=== PATIENT | male | born 1935 | race Caucasian/White ===

== ENCOUNTER 2018-11-12 12:24 | Emergency (ER) | payer MEDICARE ==
[~2018-11-12] VITALS: Ht 175.2 cm; Wt 90.7 kg
--- NOTE | ~2018-11-12 | EKG ---
[place], [place] ELECTROCARDIOGRAM REPORT NAME: ROHIT CANAS UNIT #: [id number] ROOM: DOCTOR: EPIPHANY DRAFT REPORT BIRTHDATE: [birth year] [facility] Test Date: 2018-11-12 Test Time: 13:22:05 Pat Name: ROHIT CANAS Department: Room: Gender: Processes Chemical Design Engineer: : [id number] Requested By: JANEEN LOPEZ Order Number: [id number] Reading MD: Nile Gordon MD Measurements Intervals [place] Rate: 103 P: [place]: QRS: -50 QRSD: 140 T: -47 QT: 376 QTc: 492 Interpretive Statements Atrial fibrillation Right bundle branch block Inferior infarct, old Electronically Signed On 11-13-2018 14:46:44 PDT by Nile Gordon MD CM:EKGRPT:ELECTROCARDIOGRAM REPORT [id number] JANEEN CANALES DRAFT REPORT JANEEN LOPEZ DO
[~2018-11-12 12:24] MED LIST: KEFLEX500 MG PO
[2018-11-12 13:26] LABS: BASO % 0.2 % (0.0-1.0); HEMATOCRIT 43.8 % (42.0-52.0); HEMOGLOBIN 13.8 g/dl (14.0-18.0); LYMPH # 0.5 10*3/uL (1.3-4.4); MEAN CELL VOLUME 87.6 fl (80.0-94.0); MEAN CORPUSCULAR HGB 27.6 pg (27.0-31.0); MEAN CORPUSCULAR HGB CONC 31.5 g/dl (33.0-37.0); MEAN PLATELET VOLUME 11.4 fl (9.6-12.3); MONO # 0.3 10*3/uL (0.1-1.0); MONO % 7.5 % (3.0-9.0); NEUT # 3.7 10*3/uL (2.3-7.9); NEUT % 82.1 % (47.0-73.0); PLATELET COUNT AUTOMATED 94 10*3/uL (130-400); RED CELL DISTRI WIDTH 14.6 % (0-14.5); WHITE BLOOD COUNT 4.5 10*3/uL (4.8-10.8)
[2018-11-12 13:38] LABS: ACT PARTIAL THROMBO TIME 36.1 SECONDS (20.0-32.1); INTERNATIONAL NORM RATIO 1.2 (2.0-3.5)
[2018-11-12 13:41] LABS: ALBUMIN 3.4 gm/dl (3.1-4.5); ALKALINE PHOSPHATASE 76 U/L (45-117); BUN 21 mg/dl (7-24); CHLORIDE 109 mmol/L (98-107); CREATININE 1.82 mg/dL (0.70-1.30); LIPASE 56 U/L (73-393); POTASSIUM 3.6 mmol/L (3.5-5.1); SGOT/AST 18 IU/L (3-35); SGPT/ALT 17 U/L (12-78); SODIUM 140 mmol/L (136-145); TOTAL PROTEIN 6.7 gm/dL (6.4-8.2)
[2018-11-12 13:42] LABS: TROPONIN I < 0.015 ng/ml (<0.045)
== END 2018-11-12 14:31 | disposition home or self-care (01) ==
LOC: ED 12:24
PROVIDERS: Emergency Medicine
DX: R19.7 Diarrhea, unspecified (principal); Z98.890 Other specified postprocedural states

== ENCOUNTER → 2021-09-30 | Outpatient (CLI) | payer MEDICARE | END | disposition home or self-care (01) | LOC: RESCLI 00:29 | PROVIDERS: ATTEND Internal Medicine | DX: I48.91 Unspecified atrial fibrillation (principal); H40.9 Unspecified glaucoma; N40.0 Benign prostatic hyperplasia without lower urinary tract symptoms; Z79.899 Other long term (current) drug therapy; Z79.82 Long term (current) use of aspirin ==

== ENCOUNTER 2021-11-27 13:26 | Emergency (ER) | payer MEDICARE ==
[~2021-11-27] VITALS: Wt 90.7 kg
[2021-11-27 14:19] LABS: BASO % 0.4 % (0.0-1.0); HEMATOCRIT 44.7 % (42.0-52.0); LYMPH # 0.9 10*3/uL (1.3-4.4); LYMPH % 16.1 % (27.0-41.0); MEAN CELL VOLUME 89.9 fl (80.0-94.0); MEAN CORPUSCULAR HGB 28.8 pg (27.0-31.0); MONO # 0.6 10*3/uL (0.1-1.0); MONO % 11.8 % (3.0-9.0); NEUT # 3.9 10*3/uL (2.3-7.9); NEUT % 71.5 % (47.0-73.0); PLATELET COUNT AUTOMATED 112 10*3/uL (130-400); RED BLOOD COUNT 4.97 10*6/uL (4.50-5.90); WHITE BLOOD COUNT 5.4 10*3/uL (4.8-10.8)
[2021-11-27 14:34] LABS: ALKALINE PHOSPHATASE 81 U/L (45-117); BUN 19 mg/dl (7-24); CHLORIDE 112 mmol/L (98-107); CREATININE 1.29 mg/dL (0.70-1.30); POTASSIUM 3.9 mmol/L (3.5-5.1); SGOT/AST 21 IU/L (3-35); SGPT/ALT 20 U/L (12-78); SODIUM 145 mmol/L (136-145); TOTAL PROTEIN 6.5 gm/dL (6.4-8.2)
== END 2021-11-27 15:36 | disposition home or self-care (01) ==
LOC: ED 13:26
PROVIDERS: Emergency Medicine
DX: K52.9 Noninfective gastroenteritis and colitis, unspecified (principal)

== ENCOUNTER 2022-01-30 16:25 | Emergency (ER) | payer MEDICARE ==
[~2022-01-30] VITALS: Wt 90.7 kg
[2022-01-30 18:33] LABS: BILIRUBIN Negative (Negative); BLOOD 3+ (Negative); CLARITY Cloudy (Clear); COLOR Red (Yellow); GLUCOSE Negative (Negative); KETONE Negative (Negative); LEUKO ESTERASE 1+ (Negative); NITRITE Negative (Negative); PH 5.5 (4.5-8.0)
[2022-01-30 19:01] LABS: HEMATOCRIT 47.1 % (42.0-52.0); MEAN CORPUSCULAR HGB 28.9 pg (27.0-31.0); MEAN CORPUSCULAR HGB CONC 32.5 g/dl (33.0-37.0); MEAN PLATELET VOLUME 11.1 fl (9.6-12.3); PLATELET COUNT AUTOMATED 124 10*3/uL (130-400); RED BLOOD COUNT 5.29 10*6/uL (4.50-5.90); RED CELL DISTRI WIDTH 13.8 % (0-14.5); WHITE BLOOD COUNT 6.4 10*3/uL (4.8-10.8)
[2022-01-30 19:04] LABS: MANUAL DIFF REFLEX YES
[2022-01-30 19:08] LABS: RBC TNTC rbc/hpf (0-2)
[2022-01-30 19:18] LABS: ALKALINE PHOSPHATASE 89 U/L (45-117); BUN 20 mg/dl (7-24); CHLORIDE 109 mmol/L (98-107); CREATININE 1.31 mg/dL (0.70-1.30); SGOT/AST 20 IU/L (3-35); SGPT/ALT 23 U/L (12-78); SODIUM 142 mmol/L (136-145); TOTAL PROTEIN 7.4 gm/dL (6.4-8.2)
[2022-01-30 19:23] LABS: ATYPICAL LYMPHS 1 % (0-0); BASOPHILS 2 % (0-1); TOTAL CELLS COUNTED 100 #CELLS
[2022-01-30 19:24] LABS: BURR CELLS FEW; PLATELET SUFFICIENCY LOW (NORMAL)
[2022-01-30] MEDS ORDERED: VIBRAMYCIN100 MG PO (19:56)
== END 2022-01-30 20:12 | disposition home or self-care (01) ==
LOC: ED 16:25
PROVIDERS: Nurse Practitioner Family
DX: R31.9 Hematuria, unspecified (principal); I48.91 Unspecified atrial fibrillation

== ENCOUNTER 2022-09-01 21:39 | Emergency (ER) | payer MEDICARE ==
[~2022-09-01] VITALS: Ht 175.2 cm; Wt 90.7 kg
[~2022-09-01 21:39] MED LIST changes: +VIBRAMYCIN100 MG PO
[2022-09-01] MEDS ORDERED: XARE15TA PO (21:55)
[2022-09-01] MEDS ORDERED: METOPROLOL SUCC50 M1 PO (21:56)
[2022-09-01] MEDS ORDERED: LASIX20 MG PO (21:56)
[2022-09-01] MEDS ORDERED: DILTIAZEM CD240 MG PO (21:56)
[2022-09-01] MEDS ORDERED: XALATAN 0.005%2.5 ML INTRAOC (21:57)
[2022-09-01] MEDS ORDERED: TAMSULOSIN HCL0.4 MG PO (21:57)
[2022-09-01] MEDS ORDERED: CLARITIN10 MG PO (21:58)
[2022-09-01 22:24] LABS: BASO % 0.3 % (0.0-1.0); HEMATOCRIT 40.4 % (42.0-52.0); LYMPH # 1.5 10*3/uL (1.3-4.4); LYMPH % 19.1 % (27.0-41.0); MEAN CELL VOLUME 88.2 fl (80.0-94.0); MEAN CORPUSCULAR HGB 28.6 pg (27.0-31.0); MEAN CORPUSCULAR HGB CONC 32.4 g/dl (33.0-37.0); MEAN PLATELET VOLUME 10.2 fl (9.6-12.3); MONO % 12.2 % (3.0-9.0); NEUT # 5.4 10*3/uL (2.3-7.9); NEUT % 68.1 % (47.0-73.0); PLATELET COUNT AUTOMATED 102 10*3/uL (130-400); RED BLOOD COUNT 4.58 10*6/uL (4.50-5.90); RED CELL DISTRI WIDTH 14.6 % (0-14.5); WHITE BLOOD COUNT 7.9 10*3/uL (4.8-10.8)
[2022-09-01 22:54] LABS: POTASSIUM 3.6 mmol/L (3.4-5.1); TOTAL PROTEIN 6.3 gm/dL (6.0-8.0)
== END 2022-09-02 01:42 | disposition home or self-care (01) ==
LOC: ED 21:39
PROVIDERS: Internal Medicine
DX: I95.1 Orthostatic hypotension (principal); E44.1 Mild protein-calorie malnutrition; I12.9 Hypertensive chronic kidney disease with stage 1 through stage 4 chronic kidney disease, or unspecified chronic kidney disease; N18.31 Chronic kidney disease, stage 3a; I48.91 Unspecified atrial fibrillation; Z79.899 Other long term (current) drug therapy; Z98.890 Other specified postprocedural states

== ENCOUNTER → 2023-01-17 | Outpatient (CLI) | payer MEDICARE ==
[~2023-01-17] MED LIST changes: +CLARITIN10 MG PO; +DILTIAZEM CD240 MG PO; +LASIX20 MG PO; +METOPROLOL SUCC50 M1 PO; +TAMSULOSIN HCL0.4 MG PO; +XALATAN 0.005%2.5 ML INTRAOC; +XARE15TA PO
== END | disposition home or self-care (01) ==
LOC: RESCLI 01:11
PROVIDERS: ATTEND Internal Medicine
DX: I12.9 Hypertensive chronic kidney disease with stage 1 through stage 4 chronic kidney disease, or unspecified chronic kidney disease (principal); N18.9 Chronic kidney disease, unspecified; I48.91 Unspecified atrial fibrillation; N40.0 Benign prostatic hyperplasia without lower urinary tract symptoms; E78.5 Hyperlipidemia, unspecified; R60.0 Localized edema; H40.9 Unspecified glaucoma; D64.9 Anemia, unspecified; Z79.899 Other long term (current) drug therapy; Z82.49 Family history of ischemic heart disease and other diseases of the circulatory system; Z79.82 Long term (current) use of aspirin